=== PATIENT | male | born 1930 | race Caucasian/White ===

== ENCOUNTER 2019-09-23 11:07 | Observation (INO) | payer MEDICARE ==
[2019-09-23 11:40] LABS: #Eosinphils 0.1 thou/uL (0.0-0.7); #Lymphocytes 2.2 thou/uL (1.20-3.40); #Monocytes 0.5 thou/uL (0.11-0.59); #Neutrophils 4.1 thou/uL (1.40-6.50); %Basophils 0.3 % (0.0-1.0); %Eosinophils 1.2 % (0.0-10.0); %Lymphocytes 31.2 % (21.0-51.0); %Monocytes 7.9 % (0.0-10.0); %Neutrophils 59.5 % (42.0-75.0); Hemoglobin 13.4 g/dL (14.0-18.0); Mean Corpuscular HGB CONC 34.2 g/dL (32.0-36.0); Mean Corpuscular Hemoglobin 31.8 pg (27.0-31.0); Mean Corpuscular Volume 93.1 fL (78.0-98.0); Platelet Count 149 thou/uL (130-400); RBC Distribution Width 12.2 % (11.5-14.5); Red Blood Cell (RBC) Count 4.22 mill/uL (4.70-6.10); White Blood Cell (WBC) Count 6.9 thou/uL (4.8-10.8)
--- NOTE | 2019-09-23 11:53 | RAD ---
PORTABLE CHEST: Date: 09/23/2019 HISTORY: Chest pain starting last night. COMPARISON: Most recent study which is a 12/05/2016 exam. FINDINGS: Heart size is within normal limits. There are postop sternotomy changes. There are chronic lung copeland es seen. Chronic pleural and parenchymal changes in the left base are similar to the previous study. There are parenchymal changes in the right base, which may be slightly more prominent than on the eliza or examination, although difference may just be technique related. There has been chronic change in t his area. IMPRESSION: Mainly chronic appearing lung changes. Some of the changes in the right base may be slightly more pro minent than on the prior study. Left lung pleural and parenchymal changes are stable. POS: MARCOS
[2019-09-23 11:59] LABS: ALT (SGPT) 13 U/L (8-55); AST (SGOT) 22 U/L (5-34); Albumin 3.9 g/dL (3.4-4.8); Alkaline Phosphatase 77 U/L (40-110); Anion Gap 12 mmol/L (10-20); BUN (Urea Nitrogen) 18 mg/dL (8.4-25.7); Bilirubin, Total 0.7 mg/dL (0.2-1.2); Calc. Creatinine Clearance 0 mL/min (70-130); Calcium 9.4 mg/dL (7.8-10.44); Carbon Dioxide 28 mmol/L (23-31); Chloride 104 mmol/L (98-107); Estimated GFR-MDRD 65; Globulin 2.8 g/dL (2.4-3.5); Glucose 97 mg/dL (83-110); Potassium 4.2 mmol/L (3.5-5.1); Protein, Total 6.7 g/dL (5.8-8.1); Sodium 140 mmol/L (136-145)
[2019-09-23] MEDS ORDERED: Aspirin Chewable 81 MG TAB ONE (14:09)
[2019-09-23 15:10] LABS: Troponin I Less than 0.010 ng/mL (< 0.028)
[2019-09-23] MEDS ORDERED: Ondansetron PF 4 MG/2 ML Vial IVP PRN ×2 (15:15→17:32)
[2019-09-23] MEDS ORDERED: Ondansetron ODT 4 MG TAB SL PRN (15:15)
[2019-09-23] MEDS ORDERED: Acetaminophen 325 MG TAB PO PRN ×2 (15:15→17:32)
[2019-09-23 15:21] VITALS: BMI 20.3
[2019-09-23] MEDS ORDERED: Nitroglycerin 0.4 MG TAB (25 Tab Bottle) PO PRN (17:31)
[2019-09-23] MEDS ORDERED: Calcium Carbonate 500 MG ChewTAB PO PRN (17:32)
[2019-09-23] MEDS ORDERED: Senokot S 8.6-50 MG TAB PO PRN (17:32)
[2019-09-23] MEDS ORDERED: Ondansetron ODT 4 MG TAB PO PRN (17:32)
--- NOTE | 2019-09-23 17:50 | HP ---
PRIMARY CARE PHYSICIAN: Dr. Freeman. CHIEF COMPLAINT: Chest discomfort. HISTORY OF PRESENT ILLNESS: The patient is an 89-year-old male with coronary artery disease, status post CABG, currently not taking any prescription medications, presented to the emergency room with above complaints. Over the last 2 days, the patient has on and off chest discomfort, which is precordial and over the right side of his chest. It is short in duration without any aggravating or relieving factor. Last night, the pain started while he was lying down in his bed. He denies any associated nausea, vomiting, diaphoresis, fever, or chills. He denies any travel or sick contacts. No recent immobilization or travel reported. Functionally, he is very active. He does not take any medications including aspirin. In the emergency room, his initial vital signs showed temperature 98.2, respiration of 16, pulse rate of 84 with a blood pressure of 154/95, O2 saturation 98% on room air. He received aspirin in the emergency room. His EKG showed sinus rhythm without significant ST-T wave changes. His chest x-ray was negative for infiltrate or edema. PAST MEDICAL HISTORY: 1. Coronary artery disease, status post CABG in 2014. 2. Hyperlipidemia. 3. Hypertension. PAST SURGICAL HISTORY: Laparoscopic cholecystectomy in 2016, coronary artery bypass grafting in 2015. ALLERGIES: NO KNOWN DRUG ALLERGIES. CURRENT HOME MEDICATIONS: Reviewed with the patient and none. SOCIAL HISTORY: The patient currently lives at home with his family. He is full code and makes his own decision with the help of his family. He is a former smoker. FAMILY HISTORY: Negative for heart disease. REVIEW OF SYSTEMS: All other review of systems was reviewed and were found. PHYSICAL EXAMINATION: VITAL SIGNS: As discussed above. GENERAL: An 89-year-old male, in no apparent distress. Denies any chest discomfort at this time. HEENT: Head, atraumatic and normocephalic. Sclerae are anicteric. Moist mucous membrane. No oral lesion. NECK: Supple. No JVD appreciated. No carotid bruit. LUNGS: Clear to auscultation bilaterally. No wheezing, rales, or rhonchi. HEART: S1 and S2 present. Regular rate and rhythm. No rubs or gallops. Healed midline scar from previous CABG. ABDOMEN: Soft, nontender. Bowel sounds are present. No rebound or guarding. No costovertebral angle tenderness. EXTREMITIES: No edema or calf tenderness. NEUROLOGIC: Grossly nonfocal. Moves all 4 extremities. PSYCHIATRY: Alert, awake, and oriented x3. SKIN: Warm and dry. LYMPH NODE: No palpable lymph nodes in the neck. PERIPHERAL VASCULAR: Radial pulses palpable bilaterally. MUSCULOSKELETAL: No joint swelling tenderness. LABORATORY FINDINGS: CBC showed WBC 6.9 with hemoglobin 13.4, hematocrit 39.3, platelet of 149. Chemistry showed sodium 140, potassium 4.2, chloride 104, bicarb 28, BUN 18, creatinine 1.08. LFTs in normal range. Troponin x2 have been negative. IMAGING STUDIES: EKG and chest x-ray by my review as discussed above. IMPRESSION: 1. Chest discomfort, rule out acute coronary syndrome. 2. Coronary artery disease, status post coronary artery bypass graft in 2014. 3. Hypertension. 4. Hyperlipidemia. 5. Medication noncompliance. 6. Chronic kidney disease, stage 2. 7. Chronic anemia, suspected due to nutritional deficiency. PLAN: The patient will be monitored on the telemetry unit. Serial troponins will be obtained. An echocardiogram will be obtained. We will consult Cardiology, Dr. Song in a.m. We will keep him n.p.o. past midnight. We will start him on aspirin. We will check fasting lipid profile in a.m. The patient understands the above plan of care. Job ID: [id number]
[2019-09-23 17:58] LABS: Troponin I 0.014 ng/mL (< 0.028)
[2019-09-23] MEDS: Metoprolol Tartrate 25 MG TAB PO SCH (20:17)
[2019-09-24 04:37] LABS: Cardiac Risk 4.3 (Less than 4.5)
[2019-09-24] MEDS: Metoprolol Tartrate 25 MG TAB PO SCH (07:40)
[2019-09-24] MEDS ORDERED: ADENOSINE 60 MG/20 ML VIAL ONE (08:49)
[2019-09-24] MEDS ORDERED: Aspirin 81 mg Enteric Coated Tablet PO SCH (09:00)
--- NOTE | 2019-09-24 09:40 | CON ---
DATE OF CONSULTATION: REASON FOR CONSULTATION: Atypical chest pain. REFERRING PROVIDER: Dr. Fleming. HISTORY OF PRESENT ILLNESS: Mr. Coulter is a pleasant 89-year-old gentleman with a history of CAD, status post bypass surgery in 2014. He has not been seen since 2014. He states he had an episode of epigastric pain yesterday. It lasted 5 minutes. It was at rest. No further episodes. One isolated event. He has not had any chest pain, pressure, shoulder pain, neck or jaw pain noted with exertion. His CK troponin all negative. His EKG shows no acute ST-T wave changes. PAST MEDICAL HISTORY: As above including hyperlipidemia, hypertension, laparoscopic cholecystectomy, and CABG. ALLERGIES: NONE. SOCIAL HISTORY: No current tobacco or alcohol use. HOME MEDICATIONS: None. REVIEW OF SYSTEMS: A 10-point review of systems is reviewed and is as above, otherwise negative. PHYSICAL EXAMINATION: GENERAL: Patient is a pleasant male, who is in no acute distress. The patient appears their stated age. VITAL SIGNS: Blood pressure 121/71, pulse 63, and temperature 98.1. NEUROLOGIC: The patient is alert and oriented x3 with no focal neurologic deficits. HEENT: Sclerae without icterus. Mouth has moist mucous membranes with normal pallor. NECK: No JVD. Carotid upstroke brisk. No bruits bilaterally. LUNGS: Clear to auscultation with unlabored respirations. BACK: No scoliosis or kyphosis. CARDIAC: Regular rate and rhythm with normal S1 and S2. No S3 or S4 noted. No significant rubs, murmurs, thrills, or gallops noted throughout the precordium. PMI is not displaced. There is no parasternal heave. ABDOMEN: Soft, nontender, nondistended. No peritoneal signs present. No hepatosplenomegaly. No abnormal striae. EXTREMITIES: 2+ femoral and 2+ dorsalis pedis pulses. No cyanosis, clubbing, or edema. SKIN: No gross abnormalities. PERTINENT LABORATORY DATA: CK troponin negative. Hemoglobin 13.4, hematocrit 39.3. Creatinine 1.08. IMPRESSION: 1. Atypical chest pain. 2. Coronary artery disease. 3. Status post bypass surgery. RECOMMENDATIONS: Mr. Coulter's symptoms appear to be more epigastric versus anginal. His CK troponin negative. His EKG is normal. I gave Mr. Coulter the option of proceeding with noninvasive stress study as an inpatient versus outpatient. He did receive beta-peña therapy this morning and may have to wait another 24 hours prior to proceeding with stress test. He would like to proceed with outpatient approach. This certainly seems reasonable given atypical symptoms. No EKG changes and negative troponin. He is on no medical therapy at home. Recommend aspirin 81 q.a.m., Toprol-XL 25 mg at bedtime in addition to Lipitor 40 mg one p.o. q.p.m. Otherwise, from my standpoint, I have no further recommendations. We will follow up with Mr. Coulter in the next 1 to 2 weeks. Job ID: [id number]
--- NOTE | 2019-09-24 13:35 | NM ---
Exam: Nuclear medicine cardiac stress with EF and wall motion HISTORY: Chest pain. TECHNIQUE: Patient was administered 9 mCi of technetium 99m sestamibi for rest imaging and 29.3 mCi o f technetium 99m sestamibi for stress imaging. Cardiac gating was performed. FINDINGS: Homogeneous distribution of the radiotracer in the left ventricle. No reversibility or fixed defect. TID is 1.08. End-diastolic volume is 93 mL. End-systolic volume is 32 mL. Cardiac gating: Normal wall motion and thickening. 65% ejection fraction. IMPRESSION: 1. No reversibility or fixed defect. 2. 65% ejection fraction. Transcribed Date/Time: 09/24/2019 2:49 PM
[2019-09-24 15:46] VITALS: BP 107/68; TEMP 97.6
--- NOTE | 2019-09-24 19:52 | DIS ---
DATE OF ADMISSION: 09/23/2019 DATE OF DISCHARGE: 09/24/2019 DISCHARGE DISPOSITION: Home. FOLLOWUP: Follow up with primary care physician, Dr. Freeman in 1 week. The patient was seen and examined on the day of discharge. Denies any new complaints. No chest pain, shortness of breath, or palpitations reported. BRIEF HOSPITAL COURSE: The patient is an 89-year-old male with coronary artery disease, status post CABG, currently not taking any prescription medications, presented to the emergency room with chest discomfort. Please refer to the history and physical for further details. The patient was admitted to the hospital with a diagnosis of chest discomfort, rule out acute coronary syndrome. His serial troponins remain negative. Troponins were negative. He underwent a Cardiolite stress test that was negative for reversible ischemia. Ejection fraction was 65%. He has been cleared by Cardiology for discharge. FINAL DIAGNOSES: 1. Chest discomfort, acute coronary syndrome ruled out. 2. Coronary artery disease, status post coronary artery bypass grafting in 2014. 3. Hypertension. 4. Hyperlipidemia. 5. Medication noncompliance. 6. Chronic kidney disease, stage 2. 7. Chronic anemia, suspected due to nutritional deficiency. The patient understands the above plan of care. Job ID: [id number]
--- NOTE | 2019-09-25 13:34 | EKG ---
Test Reason : Blood Pressure : / mmHG Vent. Rate : 068 BPM Atrial Rate : 068 BPM P-R Int : 136 ms QRS Dur : 086 ms QT Int : 414 ms P-R-T Axes : -19 048 033 degrees QTc Int : 440 ms Normal sinus rhythm Normal ECG Confirmed by OSMAN ALFORD ([id number]), order editor [place] ALLISON ([id number]) on 09/25/2019 1:34:09 PM Referred By: Confirmed By:OSMAN ALFORD
== END 2019-09-24 16:03 | disposition home or self-care (01) ==
LOC: ERS 11:07 → 2NO 13:26
PROVIDERS: ADMIT Internal Medicine; ATTEND Internal Medicine
DX: R07.89 Other chest pain (principal); I25.10 Atherosclerotic heart disease of native coronary artery without angina pectoris; I12.9 Hypertensive chronic kidney disease with stage 1 through stage 4 chronic kidney disease, or unspecified chronic kidney disease; N18.2 Chronic kidney disease, stage 2 (mild); E78.5 Hyperlipidemia, unspecified; D64.9 Anemia, unspecified; Z87.891 Personal history of nicotine dependence; Z91.14 Patient's other noncompliance with medication regimen; Z95.1 Presence of aortocoronary bypass graft
CPT/HCPCS: 71045; 78452; 80053; 80061; 84484 ×2; 85025; 93005; 93017; 97139; 99285; A9500; G0378 ×3; 36415; J0153